=== PATIENT | female | born 1985 | race Caucasian/White ===

== ENCOUNTER 2018-07-28 17:47 | Day surgery (SDC) | payer MEDICAID, OTHER ==
[2018-07-28 18:32] VITALS: TEMP 99.3; BMI 36.8
--- NOTE | 2018-07-28 18:51 | PDOC.LDHP ---
Labor and Delivery H&P HPI: Patient at 32 weeks [address] Landaverde CC: possible CTX HPI: 33 yo (term delivery at 38 weeks) at 32 weeks 2 days with possible irregular CTX. No VB, no ROM, no LOF. Good FM. No recent Sex. No fevers, no recent trauma. Review of Systems: Complete ROS completed and as per HPI Current gestational age (weeks): 32 (2 days) Due date: 09/21/18 Dating criteria: last menstrual period Grav: 2 Para: 1 OB History Details: States had some threatened PTL at 32 weeks with first preg but delievered at 38 weeks Current complications: none Abnormal US findings: No Past Medical History: HX Chlamydia in past- RX'd Current medications: pre- vitamins Previous surgical history: other (wisdom teeth) Allergies/Adverse Reactions: Allergies Allergy/AdvReac Type Severity Reaction Status Date / Time diphenhydramine Allergy Unknown Verified 07/28/18 18:14 [From Benadryl] Social history: none - Physical Exam Vital signs reviewed and normal: yes (afebrile; BP 112/65 (Tmax 99.3)) General: NAD Heart: RRR Lungs: CTAB Abdomen: gravid Extremeties: no edema FHT: category 1 Jaars contractions every: irritability, no CTX pattern - Assessment Threaened PTL at 32 weeks, no HX PTB. No recent intercourse nor cervical exam - Plan Plan: other (Observation in L&D; I have ordered FFN and cervical exam after the FFN: 1 Liter LR for conservative care. Await exam and FFN results)
[2018-07-28] MEDS ORDERED: Lactated Ringer's 1,000 ML IV SCH (19:00)
[2018-07-28 19:32] VITALS: BP 108/70
[2018-07-28 20:01] LABS: FFN Internal QC Analyzer PASS (PASS); FFN Internal QC Cassette PASS (PASS); Fetal Fibronectin Negative (Negative)
--- NOTE | 2018-07-28 20:05 | PDOC.EVN ---
Event Note - Event Note Event Note: FFN negative I discussed a negative FFN and its high negative predictive value. If it was positive, we would have ordered a cervical length. As cervix is FT and thick on exam, and no HX of PTB, with neg FFN...we are OK for outpatient care. I did relay this information to her.
== END 2018-07-28 20:15 | disposition home or self-care (01) ==
LOC: L&D/OP 17:47
PROVIDERS: ATTEND Obstetrics & Gynecology
DX: O47.03 False labor before 37 completed weeks of gestation, third trimester (principal); Z3A.32 32 weeks gestation of pregnancy; Z79.899 Other long term (current) drug therapy; Z88.8 Allergy status to other drugs, medicaments and biological substances
CPT/HCPCS: 59025; 82731; 96360; 99283

== ENCOUNTER 2018-09-14 01:37 | Inpatient (IN) | payer OTHER ==
--- NOTE | 2018-09-13 22:42 | PDOC.LDHP ---
Labor and Delivery H&P Chief complaint: scheduled induction HPI: 33 year old with AMA and Polyhydramnios presents for scheduled term medical induction of labor. Due date: 09/21/18 Grav: 2 Para: 1 Current complications: other (polyhydramnios) Abnormal US findings: Yes (Polyhydrmanios) Allergies/Adverse Reactions: Allergies Allergy/AdvReac Type Severity Reaction Status Date / Time diphenhydramine Allergy Unknown Verified 07/28/18 18:14 [From Benadryl] Social history: none - Physical Exam Vital signs reviewed and normal: yes General: NAD, resting Heart: RRR Lungs: CTAB Abdomen: gravid Extremeties: no edema FHT: category 1 - Assessment L&D Assessment: medically indicated induction GBS Negative on 08/22/18. - Plan Plan: admit to L&D, cervical ripening
[~2018-09-14 01:37] MED LIST: Butorphanol Tartrate 1 MG/ML VIAL SLOW IVP PRN; Carboprost 250 MCG/ML AMP IM PRN; Diphenoxylate HCl/Atropine Tablet PO PRN; HYDROcodone/Acetaminophen 5/325 mg Tablet PO PRN; Lidocaine 1% (PF) 30 ML VIAL SC PRN; Methylergonovine 0.2 MG/ML VIAL IM PRN; Misoprostol 200 MCG TAB PR PRN; NS / Oxytocin 40 units/1000ml 1,000 ML IV PRN; NS w/ Oxytocin 10 units 500 ML IV SCH; Ondansetron PF 4 MG/2 ML Vial IVP PRN; Promethazine HCl 25 MG/ML VIAL IM PRN; Zolpidem Tartrate 5 MG TAB PO PRN
[2018-09-14 02:11] VITALS: BMI 38.7
[2018-09-14] MEDS: Lactated Ringer's 1,000 ML IV SCH ×4 (02:45→14:46)
[2018-09-14 02:57] LABS: Hemoglobin 11.4 g/dL (12.0-16.0); Mean Corpuscular HGB CONC 32.5 g/dL (32.0-36.0); Mean Corpuscular Hemoglobin 27.2 pg (27.0-31.0); Mean Corpuscular Volume 83.6 fL (78.0-98.0); Mean Platelet Volume 8.3 fL (7.4-10.4); Platelet Count 326 thou/uL (130-400); RBC Distribution Width 13.6 % (11.5-14.5); Red Blood Cell (RBC) Count 4.21 mill/uL (4.20-5.40); White Blood Cell (WBC) Count 12.4 thou/uL (4.8-10.8)
[2018-09-14] MEDS: Misoprostol 100 MCG TAB VAG SCH ×5 (03:15→17:19)
[2018-09-14 03:36] LABS: HBSAg Index 0.27 S/CO (0-0.99); Hep B Surf Ag Non-Reactive S/CO (NonReactive)
[2018-09-14 04:53] LABS: Syphilis Antibody Nonreactive (Nonreactive); Syphilis Antibody Index 0.05 S/CO (<1.00 Non-Reactive)
[2018-09-14] MEDS: NS w/ Oxytocin 10 units 500 ML IV SCH ×2 (07:53→21:28)
[2018-09-14] MEDS ORDERED: Fentanyl 4 mcg/Bup 0.1% Cadd 100 ML ONE (22:16)
[2018-09-14] MEDS ORDERED: Lidocaine 1.5%/Epinephrine 1:200,000 5 ML AMPUL IJ ONE (22:49)
[2018-09-14] MEDS ORDERED: Ondansetron PF 4 MG/2 ML Vial IVP PRN (23:15)
[2018-09-14] MEDS ORDERED: Eucerin (Mineral Oil/Petrolatum,White) 30 gm Jar TOP PRN (23:15)
[2018-09-14] MEDS ORDERED: Communication Order-Pharmacy FS SCH (23:15)
[2018-09-14] MEDS ORDERED: Fentanyl 4 mcg/Bupivacaine 0.1% Cassette 100 ML EPIDURAL SCH (23:15)
[2018-09-14] MEDS ORDERED: ePHEDrine/0.9% NaCl/PF SYRINGE 50 mg/10 ml SLOW IVP PRN (23:15)
[2018-09-14] MEDS ORDERED: Naloxone HCl 0.4 mg/ml Vial IVP PRN ×2 (23:15)
[2018-09-14] MEDS ORDERED: diphenhydrAMINE 50 MG/ML VIAL IVP PRN (23:15)
[2018-09-14] MEDS ORDERED: Acetaminophen 325 MG TAB PO PRN (23:15)
[2018-09-14] MEDS ORDERED: Lactated Ringer's 500 ML IV PRN (23:15)
[2018-09-14] MEDS ORDERED: Promethazine HCl 25 MG/ML VIAL IM PRN (23:15)
[2018-09-15] MEDS: Lactated Ringer's 1,000 ML IV SCH ×2 (02:19→08:14)
[2018-09-15] MEDS: Misoprostol 100 MCG TAB VAG SCH ×4 (07:08→14:15)
[2018-09-15] MEDS ORDERED: Fentanyl 4 mcg/Bup 0.1% Cadd 100 ML ONE (07:17)
[2018-09-15] MEDS ORDERED: Ondansetron PF 4 MG/2 ML Vial ONE ×2 (12:13→12:50)
[2018-09-15] MEDS ORDERED: Bicitra 30 ML UDCUP ONE ×2 (12:22)
[2018-09-15] MEDS ORDERED: Bupivacaine 0.5% 10 ML VIAL ONE (12:28)
[2018-09-15] MEDS ORDERED: MORPHINE 5 MG/10 ML PF VIAL ONE (12:50)
[2018-09-15] MEDS ORDERED: Oxytocin 10 UNITS/ML VIAL ONE ×2 (12:50→13:28)
[2018-09-15] MEDS ORDERED: Fentanyl 100 MCG/2 ML VIAL ONE (12:50)
[2018-09-15] MEDS ORDERED: L&D-Morphine 4 MG/ML VIAL SLOW IVP PRN (14:06)
[2018-09-15] MEDS ORDERED: HYDROmorphone 2 MG/ML VIAL SLOW IVP PRN (14:06)
[2018-09-15] MEDS ORDERED: Meperidine HCl/PF 25 MG/ML VIAL SLOW IVP PRN (14:06)
[2018-09-15] MEDS ORDERED: Ondansetron HCl/PF 4 MG/2 ML Vial IVP PRN (14:06)
[2018-09-15] MEDS ORDERED: Ketorolac Tromethamine 30 MG/ML VIAL IVP SCH ×2 (14:15→15:45)
[2018-09-15] MEDS ORDERED: Measles/Mumps/Rubella 10 MCG/0.5 ML VIAL SC ONE (14:17)
[2018-09-15] MEDS ORDERED: NS / Oxytocin 40 units/1000ml 1,000 ML IV SCH (14:17)
[2018-09-15] MEDS ORDERED: Varicella virus, LIVE 0.5 ML VIAL SC ONE (14:17)
[2018-09-15] MEDS ORDERED: Zolpidem Tartrate 5 MG TAB PO PRN (14:17)
[2018-09-15] MEDS ORDERED: Promethazine HCl 25 MG/ML VIAL IM PRN ×2 (14:17→18:18)
[2018-09-15] MEDS ORDERED: Bisacodyl 10 MG SUPP PR PRN (14:17)
[2018-09-15] MEDS ORDERED: Adacel (T-DAP) 0.5 ML SYRINGE IM ONE (14:17)
[2018-09-15] MEDS ORDERED: Misoprostol 200 MCG TAB PR PRN (14:17)
[2018-09-15] MEDS ORDERED: Simethicone Chewable 80 MG TAB PO PRN (14:17)
[2018-09-15] MEDS ORDERED: HYDROcodone/Acetaminophen 5/325 mg Tablet PO PRN ×2 (14:17)
[2018-09-15] MEDS ORDERED: Lanolin Ointment 7 GM TUBE TOP PRN (14:17)
[2018-09-15] MEDS ORDERED: Methylergonovine 0.2 MG/ML VIAL IM PRN (14:17)
[2018-09-15] MEDS ORDERED: Ondansetron PF 4 MG/2 ML Vial IVP PRN ×2 (14:17→18:18)
[2018-09-15] MEDS ORDERED: Ketorolac Tromethamine 30 MG/ML VIAL ONE (15:41)
[2018-09-15] MEDS ORDERED: Naloxone HCl 0.4 mg/ml Vial IV PRN (18:18)
[2018-09-15] MEDS ORDERED: Promethazine HCl 25 MG SUPP PR PRN (18:18)
[2018-09-15] MEDS ORDERED: Hydrocerin (Eucerin) Cream 120 gm Jar TOP PRN (18:18)
[2018-09-15] MEDS ORDERED: Naloxone HCl 0.4 mg/ml Vial IVP PRN ×2 (18:18)
[2018-09-15] MEDS ORDERED: Communication Order-Pharmacy FS SCH (18:30)
[2018-09-15] MEDS ORDERED: Ibuprofen 800 MG TAB PO SCH (22:00)
[2018-09-15] MEDS: Docusate Calcium (SURFAK) 240 MG CAP PO SCH (22:03)
[2018-09-15] MEDS: Ketorolac Tromethamine 30 MG/ML VIAL IVP PRN (23:26)
[2018-09-16 06:06] LABS: Hemoglobin 9.5 g/dL (12.0-16.0); Mean Corpuscular HGB CONC 31.6 g/dL (32.0-36.0); Mean Corpuscular Hemoglobin 26.8 pg (27.0-31.0); Mean Corpuscular Volume 84.9 fL (78.0-98.0); Platelet Count 269 thou/uL (130-400); RBC Distribution Width 13.8 % (11.5-14.5); Red Blood Cell (RBC) Count 3.55 mill/uL (4.20-5.40)
[2018-09-16] MEDS: Ketorolac Tromethamine 30 MG/ML VIAL IVP PRN (06:41)
[2018-09-16] MEDS ORDERED: HYDROcodone/Acetaminophen 5/325 mg Tablet PO PRN (07:35)
[2018-09-16] MEDS ORDERED: Zolpidem Tartrate 5 MG TAB PO PRN (07:36)
[2018-09-16] MEDS: Prenatal Vitamin 1 TAB PO SCH (09:20)
[2018-09-16] MEDS: Docusate Calcium (SURFAK) 240 MG CAP PO SCH ×2 (09:20→21:39)
[2018-09-16] MEDS: HYDROcodone/Acetaminophen 5/325 mg Tablet PO PRN ×2 (11:53→17:19)
--- NOTE | 2018-09-16 19:26 | PDOC.PP ---
Post Progress Note Post Day #: 1 PO intake tolerated: yes Flatus: yes Ambulation: yes Vital Signs (12 hours) Temp Pulse Resp BP Pulse Ox 09/16/18 17:11 98.5 F 99 16 138/67 98 09/16/18 11:32 98.4 F 104 H 20 109/64 09/16/18 08:13 98.2 F 94 20 100/55 L 95 Weight Weight 205 lb - Physical Examination General: NAD Cardiovascular: no m/r/g Respiratory: clear to auscultation bilaterally, non-labored breathing Abdominal: + bowel sounds, lochia Extremities: negative homans (B) Skin: CS incision dry & intact, no rash Neurological: no gross focal deficits Psychiatric: A&Ox3, normal affect Result Diagrams: 09/16/18 05:45 Additional Labs: Post Labs Blood Type A POSITIVE 09/14/18 02:33 Hep Bs Antigen Non-Reactive S/CO (NonReactive) 09/14/18 02:33
[2018-09-16] MEDS: Ibuprofen 800 MG TAB PO SCH (21:38)
[2018-09-17] MEDS: Ibuprofen 800 MG TAB PO SCH (05:45)
[2018-09-17 07:48] VITALS: BP 111/63; TEMP 98.5
[2018-09-17] MEDS: Docusate Calcium (SURFAK) 240 MG CAP PO SCH (08:46)
[2018-09-17] MEDS: Prenatal Vitamin 1 TAB PO SCH (08:46)
--- NOTE | 2018-09-17 09:31 | DIS ---
DATE OF ADMISSION: 09/14/2018 DATE OF DISCHARGE: 09/17/2018 PRIMARY OB: Bruce Landaverde MD HISTORY: The patient is postop day 2, status post a primary for non-reassuring heart tones. She reports that she is tolerating p.o., voiding on her own, having good pain control, and decreased lochia. She does report she has some shakiness when she initially gets out of bed in the morning, but resolved spontaneously and does not return through the day. The patient has expressed interest in discharging home today. Her course has been uncomplicated. PHYSICAL EXAMINATION: VITAL SIGNS: Today, blood pressure 115/78, pulse is 76, respiratory rate of 18, and saturating 98% on room air. GENERAL: She appears to be in no acute distress. She is alert and oriented, cooperative and pleasant to interact with. HEENT: Head is normocephalic and atraumatic. ABDOMEN: Fundus is firm. Incision is clean, dry, and intact. EXTREMITIES: Nontender, nonedematous. LABORATORY DATA: Post delivery hemoglobin shows 9.5, hematocrit 30.1, and platelets 269,000. The patient is being discharged to home. She has instructions to seek medical attention should she experience increasing pain, bleeding, fever, had redness or drainage from her incisions or other concerning signs. She has instructions to follow up with her primary OB in 2 weeks for an incision check. The patient is being discharged to home with hydrocodone and ibuprofen. Job ID: [id number]
--- NOTE | 2018-09-29 02:58 | OP ---
DATE OF PROCEDURE: 09/15/2018 PREOPERATIVE DIAGNOSES: Intrauterine at 39 weeks and 1 day with a history of polyhydramnios and persistent non-reassuring heart tones with zero ability to tolerate Pitocin augmentation. POSTOPERATIVE DIAGNOSES: Intrauterine at 39 weeks and 1 day with a history of polyhydramnios and persistent non-reassuring heart tones with zero ability to tolerate Pitocin augmentation. PROCEDURE PERFORMED: Primary low transverse section using a Pfannenstiel skin incision. FINDINGS: Viable male infant weighing 3574 g or 7 pounds 14 ounces. Apgars of 9 and 9. QUANTITATIVE BLOOD LOSS: 506 g. COMPLICATIONS: None. DETAILS OF THE PROCEDURE: The patient was consented and taken back to the operating room where spinal anesthesia was found to be adequate. She was then prepped and draped in the normal sterile fashion. A timeout was performed by the entire operative team. The incision was then marked with a marking pen tested using sharp pickups. An incision was then made with a scalpel. The incision was carried through the adipose tissue down to the underlying rectus fascia using both sharp dissection as well as cautery. Once the fascia was identified, it was incised in the midline and then the fascial incision was carried through in both lateral directions using sharp as well as cautery dissection techniques. Next, the superior aspect of the rectus fascia was grasped with 2 Tammie clamps, which was tented up and the rectus muscles were dissected off using blunt dissection as well as cautery dissection. Similarly, the inferior aspect of the fascial incision was grasped with 2 Tammie clamps, tented up and the rectus muscles were dissected off bluntly as well as sharply. Next, the rectus muscles were in the midline and the peritoneum identified. The peritoneum was then carefully grasped with 2 hemostats and entered sharply. The peritoneal incision was extended superiorly and inferiorly and bladder blade was placed in the lower abdomen. At this point, the uterus was identified and the bladder flap was then developed using pickups with teeth as well as Metzenbaum scissors in both lateral directions. The bladder flap was then dissected downwards using the diamond saw operator's finger as well as Metzenbaum scissors. The bladder blade was replaced. The lower uterine segment was then identified and entered sharply using a clean scalpel. The uterine incision was then dissected downwards until thin layer of muscle remained and this was entered bluntly using a hemostat to avoid any injury to the baby. The uterine incision was then stretched using two fingers in both lateral directions. An amniotomy was performed artificially using a hemostat and the baby was delivered using fundal pressure in a gentle fashion. Once out, the baby's mouth and nose were bulb suctioned, cord clamped and cut, and the baby was handed to waiting attendants. Next, the uterus was exteriorized, cleared of all clots and debris and the uterine incision was repaired with #1 Monocryl in a running locking fashion. A 2nd suture of the same type was used to obtain complete hemostasis at the uterine incision. The bladder flap was reapproximated using 3-0 Monocryl. Next, patient's left and right adnexa were inspected and appeared to be within normal limits. The posterior cul-de-sac was blotted dry and hemostasis assured. One more look at the uterine incision demonstrated hemostasis. Next, the uterus was replaced back within the abdomen. The peritoneum was reapproximated using 2-0 Monocryl without difficulty. The rectus muscles were then allowed to come back together and 0 chromic was used to aid in reapproximation of the muscle as necessary. The rectus fascia was then reapproximated in a running fashion using 0 Vicryl suture. The adipose tissue was then examined and appeared to be well approximated without any obvious separations. Finally, the skin was reapproximated with 3-0 Monocryl on a Jose Alberto needle without difficulty and Dermabond adhesive was applied to the skin. Once the glue was dry, the drapes were removed and the patient was transferred to an ambulatory bed where she was taken to recovery awake and in stable condition. Sponge, lap, and needle counts were correct x3. Job ID: [id number]
== END 2018-09-17 12:00 | disposition home or self-care (01) | DRG 788 ==
LOC: L&D 01:37 → 3SW 09-15 17:43
PROVIDERS: ADMIT Obstetrics & Gynecology; ATTEND Obstetrics & Gynecology
PROC: 10D00Z1 Extraction of Products of Conception, Low, Open Approach (ICD-10-PCS; principal; 2018-09-15)
DX: O76 Abnormality in fetal heart rate and rhythm complicating labor and delivery (principal); Z3A.39 39 weeks gestation of pregnancy; Z37.0 Single live birth; O40.3XX0 Polyhydramnios, third trimester, not applicable or unspecified; O69.81X0 Labor and delivery complicated by cord around neck, without compression, not applicable or unspecified
CPT/HCPCS: 36415; 51702; 85027; 86780; 86850; 86900; 86901; 87340; 90707; 90715; 90716; J0595; J1885; J2270; J2405; J2590; J3010; J3490

== ENCOUNTER 2025-05-15 11:50 | Emergency (ER) | payer OTHER | END 2025-05-15 13:23 | disposition home or self-care (01) | LOC: ERS 11:50 | DX: K08.89 Other specified disorders of teeth and supporting structures (principal); R19.7 Diarrhea, unspecified | CPT/HCPCS: 99282 ==